=== PATIENT | female | born 2000 | race Caucasian/White ===

== ENCOUNTER → 2023-09-11 11:26 | Outpatient (BNVA) | payer OTHER, SELFPAY | PROVIDERS: PCP Family Medicine; Visit Provider Family Medicine | DX: Z13.6 Encounter for screening for cardiovascular disorders (principal); E28.2 Polycystic ovarian syndrome | CPT/HCPCS: 80053; 80061; 82670; 83001; 83002; 83036; 84403; 84443; 85025 ==